=== PATIENT | female | born 1965 | race Caucasian/White ===

== ENCOUNTER 2020-07-29 16:00 | Inpatient (IN) | payer OTHER ==
[~2020-07-29] VITALS: Ht 160 cm; Wt 95.3 kg
[~2020-07-29 16:00] MED LIST: LYR50 PO; OMEP20EC9 PO; TIAZEDINE PO; [UNRECOGNIZED DRUG - CODE] PO
[2020-07-29 16:08] VITALS: BP 126/72
--- NOTE | 2020-07-29 16:21 | NUR ---
W/C ASSIST TO BED 11
[2020-07-29] MEDS ORDERED: NACL 0.9% 1,000 ML IV ONE (16:30)
--- NOTE | 2020-07-29 16:45 | NUR ---
55 Y/O FEMALE C/O DIZZINESS AND WEAKNESS X2 DAYS S/P INJECTING COCAINE. RESP EVEN AND UNLABORED. STEADY GAIT WITH CANE. NO NEURO DEFICITS NOTED. PATIENT STATES SHE FEELS "WEIRD". TREMORS NOTED AND JERKING MOVEMENTS IN UPPER EXTREMITIES. VSS. AAOX4.
--- NOTE | 2020-07-29 17:15 | NUR ---
PT TAKEN TO CT
[2020-07-29 17:16] LABS: APPEARANCE,URINE CLEAR (CLEAR); BILIRUBIN,URINE 1+ (NEGATIVE); BLOOD, URINE TRACE-I (NEGATIVE); COLOR,URINE YELLOW (YELLOW); LEUKOCYTE ESTERASE ,URINE NEGATIVE (NEGATIVE); NITRITE, URINE NEGATIVE (NEGATIVE); UGLUCOSE NEGATIVE (NEGATIVE)
[2020-07-29 17:18] LABS: BASOPHILS % (AUTO) 0.2 % (0.0-2.0); HEMATOCRIT 38.2 % (36-48); HEMOGLOBIN 12.2 g/dL (12.0-16.0); LYMPHOCYTES % (AUTO) 6.9 % (20.5-51.1); MEAN CORPUSCULAR HEMOGLOBIN 26 pg (27-31); MEAN CORPUSCULAR HGB CONC 32 g/dL (33-37); MEAN CORPUSCULAR VOLUME 81.5 fL (80-94); MONOCYTES # (AUTO) 0.9 K/uL (0.8-1.0); MONOCYTES % (AUTO) 6.2 % (1.7-9.3); NEUTROPHILS # (AUTO) 12.4 K/uL (1.8-7.7); NEUTROPHILS % (AUTO) 86.7 % (42.2-75.2); PLATELET COUNT (AUTO) 235 K/uL (140-450); RED BLOOD CELL COUNT(AUTO) 4.69 MIL/uL (4.20-5.40); RED CELL DISTRIBUTION WIDTH 15.2 % (11.6-13.7); WHITE BLOOD COUNT (AUTO) 14.2 K/uL (4.8-10.8)
[2020-07-29 17:29] LABS: ANION GAP 16.4 (8-16); CARBON DIOXIDE 24.4 mmol/L (21-32); CHLORIDE 94 mmol/L (98-107); GFR ARICAN-AMERICAN 15 mL/min (>90); GLUCOSE 116 mg/dL (74-106); POTASSIUM 3.8 mmol/L (3.5-5.1); SODIUM SERUM 131 mmol/L (136-145); UREA NITROGEN, BLOOD 38 mg/dL (7-18)
[2020-07-29 17:44] LABS: ALBUMIN 3.6 g/dL (3.4-5.0); ASPARTATE AMINOTRANSFERASE 50 U/L (15-37); TOTAL BILIRUBIN 0.6 mg/dL (0.0-1.0)
[2020-07-29 17:51] LABS: COARSE GRANULAR CASTS,URINE 0-10 /LPF (None Seen); RBC,URINE 0-5 /HPF (0-5); WBC,URINE 0-5 /HPF (0-5)
[2020-07-29 18:24] LABS: BARBITURATE, URINE NEGATIVE ng/ml (NEG <=200); BENZODIAZEPINE, URINE NEGATIVE ng/mL (NEG <=200); CANNABINOID, URINE NEGATIVE ng/mL (NEG <=50); COCAINE, URINE POSITIVE ng/mL (NEG <=300); OPIATE, URINE POSITIVE ng/mL (NEG <=2000); PHENCYCLIDINE SCREEN,URINE NEGATIVE ng/mL (NEG <=25)
--- NOTE | 2020-07-29 19:11 | NUR ---
RECEIVED REPORT FROM KENDALL BRONSON FOR CONTINUITY OF CARE.
--- NOTE | 2020-07-29 19:20 | NUR ---
PT RESTING IN BED, LOCKED AND IN LOWEST POSITION, HOB ELEVATED, SIDE RAIL X1 FOR PT SAFETY. RR EVEN AND UNLABORED, VSS.
--- NOTE | 2020-07-29 20:10 | NUR ---
Patient will be admitted to care of DR. TALLEY. Admited to TELEMETRY. Will go to room 121B. Belongings list completed. Report to KENDALL MARIN.
[2020-07-29 20:15] VITALS: BP 100/70
--- NOTE | 2020-07-29 20:15 | NUR ---
RECEIVED PT FROM ER VIA JAMES PT IS [id number] ON TELEMETRY SR DENIES ANY DIZZINESS AT THIS TIME PT AMBULATES TO THE RESTROOM VOIDING WELL YELLOW URINE, HL ON LEFT FA GAUGE # 20 PATENT, SKIN IS INTACT, MRSA NARES SWAB PROTOCOL AND SENT TO LAB . PT IS ORIENTED TO THE FLOOR CALL LIGHT WITHIN REACH
[2020-07-29] MEDS: NACL 0.9% 1,000 ML IV SCH (21:29)
[2020-07-29] MEDS ORDERED: ZOLPIDEM 5 MG TAB PO PRN (21:40)
[2020-07-29] MEDS ORDERED: MECLIZINE 25 MG TAB PO PRN (21:40)
[2020-07-29] MEDS ORDERED: LORazepam 2 MG/ML VIAL IM/IVP PRN (21:40)
[2020-07-29] MEDS ORDERED: MAG SULF 2000 MG/WATER PREMIX 50 ML IV PRN (21:40)
[2020-07-29] MEDS ORDERED: HYDROcodone/APAP 5/325 MG 1 TAB TAB PO PRN (21:40)
[2020-07-29] MEDS ORDERED: POTASSIUM CHLORIDE 10 MEQ TABER PO PRN (21:40)
[2020-07-29] MEDS ORDERED: ONDANSETRON 4 MG/2 ML VIAL IM/IVP PRN (21:40)
[2020-07-29] MEDS ORDERED: MORPHINE SULFATE 2 MG/ML SYR IVP PRN (21:40)
[2020-07-29] MEDS ORDERED: DOCUSATE SODIUM 100 MG GELCAP PO PRN (21:40)
[2020-07-29] MEDS ORDERED: ACETAMINOPHEN 325 MG TAB PO PRN (21:40)
--- NOTE | 2020-07-29 23:00 | NUR ---
PT AMBULATED TO THE RESTROOM NOT DISTRESS NOTED, VOIDING WELL ON TELEMETRY SR
[2020-07-29 23:01] LABS: CHOL/HDL RATIO 2.9 (1-4.5); MAGNESIUM 2.3 mg/dL (1.8-2.4); PROTHROMBIN TIME 10.6 secs (10.8-13.4); THYROID STIMULATING HORMONE 0.26 uIU/mL (0.34-3.74)
[2020-07-30] VITALS: BP 86/49
--- NOTE | 2020-07-30 01:57 | NUR ---
PT SLEEPING WELL ON TELMETRY SR NOT DISTRESS NOTESD
[2020-07-30 04:00] VITALS: BP 98/61
--- NOTE | 2020-07-30 04:00 | NUR ---
PT AMBULATES TO THE RESTROOM DENIES ANY DIZZINESS PN TELEMETRY SR , EMAIN STABLE
[2020-07-30 05:09] LABS: BASOPHILS % (AUTO) 0.2 % (0.0-2.0); EOSINOPHILS # (AUTO) 0.1 K/uL (0-0.4); EOSINOPHILS % (AUTO) 1.1 % (0.0-4.0); HEMATOCRIT 33.1 % (36-48); HEMOGLOBIN 10.6 g/dL (12.0-16.0); LYMPHOCYTES # (AUTO) 1.6 K/uL (2.5-16.5); MEAN CORPUSCULAR HEMOGLOBIN 26 pg (27-31); MEAN CORPUSCULAR HGB CONC 32 g/dL (33-37); MEAN CORPUSCULAR VOLUME 81.6 fL (80-94); MONOCYTES # (AUTO) 0.6 K/uL (0.8-1.0); MONOCYTES % (AUTO) 8.4 % (1.7-9.3); NEUTROPHILS # (AUTO) 5.1 K/uL (1.8-7.7); NEUTROPHILS % (AUTO) 69.3 % (42.2-75.2); PLATELET COUNT (AUTO) 168 K/uL (140-450); RED BLOOD CELL COUNT(AUTO) 4.06 MIL/uL (4.20-5.40); RED CELL DISTRIBUTION WIDTH 15.4 % (11.6-13.7); WHITE BLOOD COUNT (AUTO) 7.4 K/uL (4.8-10.8)
[2020-07-30 05:31] LABS: ANION GAP 8.7 (8-16); CARBON DIOXIDE 28.7 mmol/L (21-32); CREATININE 2.1 mg/dL (0.6-1.3); POTASSIUM 4.4 mmol/L (3.5-5.1)
[2020-07-30 05:32] LABS: MAGNESIUM 2.3 mg/dL (1.8-2.4); PHOSPHORUS 3.7 mg/dL (2.5-4.9)
--- NOTE | 2020-07-30 06:30 | NUR ---
MEDIC GIVENAS ORDER PT REMAIN STABLE DENIES ANY DIZZINESS PM TELE SR PT WILL BE ENDORSED TO [facility] NURSE FOR CONTINUE OF CARE
[2020-07-30] MEDS: PANTOPRAZOLE 40 MG TABEC PO SCH (06:49)
[2020-07-30] MEDS: NACL 0.9% 1,000 ML IV SCH ×3 (06:50→21:18)
--- NOTE | 2020-07-30 07:30 | NUR ---
RECEIVED PT AA0X4. NO SOB NOTED. NO C/O PAIN AT THIS TIME. IV TO LT FOREARM PATENT AND INTACT. CHEST CLEAR. ABDOMEN SOFT, BOWEL SOUNDS PRESENT. INSTRUCTED PT TO CALL FOR ASSISTANCE, CALL LIGHT WITHIN REACHED. PT VERBALIZED UNDERSTANDING.
[2020-07-30 08:00] VITALS: BP 100/60
[2020-07-30] MEDS ORDERED: OMEPRAZOLE PO SCH (09:00)
--- NOTE | 2020-07-30 09:39 | NUR ---
PATIENT HAS BEEN SCREENED AND CATEGORIZED MODERATE NUTRITION RISK. PATIENT WILL BE SEEN WITHIN 3-5 DAYS OF ADMISSION. 08/01/20 08/03/[address]
[2020-07-30] MEDS: PREGABALIN 50 MG CAP PO SCH ×2 (10:16→21:16)
[2020-07-30 12:00] VITALS: BP 99/65
--- NOTE | 2020-07-30 14:00 | NUR ---
URINE COLLECTED AND SENT TO LAB.
[2020-07-30] MEDS ORDERED: MORPHINE TAB ER 30 MG TABER PO SCH ×2 (14:39→21:00)
[2020-07-30] MEDS: tiZANidine 4 MG TAB PO SCH ×2 (14:51→17:48)
--- NOTE | 2020-07-30 16:10 | NUR ---
DC PLANNIN YRS OLD FEMALE PATIENT WAS ADMITTED FROM HOME WITH A DX OF OZ, DIZZINESS AND SLURRED SPEECH. PT HAS A HX OF HTN, MS CHAIRI I MALFORMATION AND FIBROMYALGIA. PT HAS COCAINE ABUSE. CXR SHOWED NO ACUTE CARDIOPULMONARY DISEASE. RENAL US, HEAD CT AND CAROTID US AR ALL NEGATIVE. URINE AND BLOOD CULTURE PENDING. STARTED IVF, PAIN MEDICATION AND CONTINUED ALL HOME MEDS. CONSULTED WITH DOT NET DEVELOPER FOR OZ. DC PLAN TO GO HOME WHEN STABLE. CM TO FOLLOW Addendum: 07/31/20 at 1210 by Seble Wynne CM DC PLANNING: SEEN BY NEPHRO DR PERALTA DC/ED IVF SCR WITH IN NORMAL LIMIT NO EVIDENCE OF ONGOING RHABDO, MILLER HELPER NORMAL ECHO. AWAITING FOR ATTENDING DC PLAN STABLE FOR DISCHARGE. CM TOF FOLLOW
--- NOTE | 2020-07-30 17:01 | NUR ---
PT RESTING. NO COMPLAINTS MADE. ENDORSED CARE TO AJAY FOR CONTINUITY OF CARE.
--- NOTE | 2020-07-30 17:09 | NUR ---
CARE ABSORBED FROM HEATHER, CHARGE NURSE. PATIENT RESTING.
[2020-07-30 17:30] VITALS: BP 116/68
[2020-07-30 19:00] LABS: CREATININE,URINE RANDOM 21 mg/dL (30-125); URINE SODIUM, RANDOM 7 mmol/l (40-220)
--- NOTE | 2020-07-30 19:10 | NUR ---
RECD. RESTING IN BED, AWAKE, A/OX4. RESPIRATION EVEN AND UNLABORED. IV OF NS AT 150 ML/HR INFUSING, LEFT FOREARM G20. ABLE TO AMBULATE INDEPENDENTLY. DENIES FEELING OF DIZZINESS. PLAN OF CARE FOR THE SHIFT DISCUSSED. VERBALIZED UNDERSTANDING. DENIES PAIN 0/10.
--- NOTE | 2020-07-30 19:11 | NUR ---
Patient's Plan of Care was discussed and reviewed with MERGERS AND ACQUISITIONS BANKER: FATMATA. CALL LIGHT WITHIN REACH.
[2020-07-30 20:00] VITALS: BP 105/64
[2020-07-30] MEDS: MORPHINE TAB ER 30 MG TABER PO SCH (21:16)
--- NOTE | 2020-07-30 21:16 | NUR ---
WATCHING TV. DUE PO MEDICATIONS GIVEN.
[2020-07-31] VITALS: BP 115/62
--- NOTE | 2020-07-31 | NUR ---
SLEEPING COMFORTABLY IN BED.
--- NOTE | 2020-07-31 02:00 | NUR ---
SLEEPING ON HER RIGHT SIDE, COMFORTABLE IN BED.
[2020-07-31 04:00] VITALS: BP 155/72
--- NOTE | 2020-07-31 04:00 | NUR ---
SR ON TELE MONITORING. NO ABNORMAL RHYTHM NOTED.
[2020-07-31] MEDS: NACL 0.9% 1,000 ML IV SCH (04:46)
[2020-07-31 05:58] LABS: BASOPHILS % (AUTO) 0.3 % (0.0-2.0); EOSINOPHILS # (AUTO) 0.1 K/uL (0-0.4); EOSINOPHILS % (AUTO) 2.6 % (0.0-4.0); HEMATOCRIT 32.8 % (36-48); HEMOGLOBIN 10.5 g/dL (12.0-16.0); LYMPHOCYTES # (AUTO) 1.2 K/uL (2.5-16.5); LYMPHOCYTES % (AUTO) 33.8 % (20.5-51.1); MEAN CORPUSCULAR HEMOGLOBIN 26 pg (27-31); MEAN CORPUSCULAR HGB CONC 32 g/dL (33-37); MEAN CORPUSCULAR VOLUME 82.6 fL (80-94); MONOCYTES # (AUTO) 0.3 K/uL (0.8-1.0); MONOCYTES % (AUTO) 8.7 % (1.7-9.3); NEUTROPHILS % (AUTO) 54.6 % (42.2-75.2); PLATELET COUNT (AUTO) 153 K/uL (140-450); RED BLOOD CELL COUNT(AUTO) 3.97 MIL/uL (4.20-5.40); RED CELL DISTRIBUTION WIDTH 15.5 % (11.6-13.7); WHITE BLOOD COUNT (AUTO) 3.7 K/uL (4.8-10.8)
--- NOTE | 2020-07-31 06:00 | NUR ---
ACCIDENTALLY WET THE BED, BEDDINGS CHANGED.
[2020-07-31] MEDS: PANTOPRAZOLE 40 MG TABEC PO SCH (06:30)
[2020-07-31] MEDS: MORPHINE TAB ER 30 MG TABER PO SCH ×2 (06:31→12:58)
[2020-07-31 07:05] LABS: ANION GAP 8.9 (8-16); CARBON DIOXIDE 27.2 mmol/L (21-32); POTASSIUM 4.1 mmol/L (3.5-5.1)
[2020-07-31 07:06] LABS: CREATININE 0.9 mg/dL (0.6-1.3)
[2020-07-31 07:11] LABS: MAGNESIUM 1.9 mg/dL (1.8-2.4); PHOSPHORUS 1.8 mg/dL (2.5-4.9)
--- NOTE | 2020-07-31 07:15 | NUR ---
CONDITION REMAIN STABLE. ENDORSED TO AM SHIFT NURSE FOR CONTINUITY OF CARE.
--- NOTE | 2020-07-31 07:17 | NUR ---
RECEIVED REPORT FROM NIGHT NURSE PT IS AAOX4 LYING IN BED, ON ROOM AIR, AMBULATORY, SKIN INTACT AND IV SITES IN PLACE, INTACT AND PATENT. ON RENAL DIET. SAFETY MEASURES IN PLACE AND CALL LIGHT WITHIN REACH. WILL CONTINUE TO MONITOR.
[2020-07-31 08:00] VITALS: BP 150/80
--- NOTE | 2020-07-31 08:54 | NUR ---
PHYSICAL THERAPY EVALUATION DONE AT THIS TIME. PATIENT ABLE TO WALK AND TOLERATED WELL.
[2020-07-31] MEDS: tiZANidine 4 MG TAB PO SCH ×2 (08:57→12:58)
[2020-07-31] MEDS: PREGABALIN 50 MG CAP PO SCH (08:57)
--- NOTE | 2020-07-31 09:06 | NUR ---
MEDICATIONS DUE GIVEN AT THIS TIME, VITAL SIGNS CHECKED BP 150/80 MI 70. NO DISTRESS NOTED AND PT DENIES PAIN, ABLE TO SLEEP WELL. SAFETY MEASURES IN PLACE AND CALL LIGHT WITHIN REACH.WILL CONTINUE TO MONITOR.
[2020-07-31 09:07] LABS: T4 (THYROXINE) 9.2 ug/dL (4.5-12.0)
--- NOTE | 2020-07-31 09:37 | NUR ---
IV FLUID SODIUM CHLORIDE 0.9% AT 150 MLS/HR DISCONTINUED AT THIS TIME.
[2020-07-31 12:00] VITALS: BP 122/75
--- NOTE | 2020-07-31 12:16 | NUR ---
CLINICAL TRAINER NOTE: Patient's Orientation Person Situation Place Time Information Provided By PATIENT Comments SW CONTACTED PATIENT'S ROOM PHONE TO COMPLETE ASSESSMENT TELEPHONICALLY. Coding File Clerk, Realtionship and Phone Number LIANA PENA [phone] [facility] Power of Shirring Machine Operator Automatic No Does Patient Have a POLST No Identifying Problems No Social Work Triggers Is A Social Work Consult Needed No Mandate Report Filed No Explanation Of Identifying Problems PATIENT IS A 55-YEAR-OLD FEMALE ADMITTED FOR OZ, DIZZINESS, AND SLURRED SPEECH. PATIENT HAS PMHX OF MS, HYPERTENSION, AND FIBROMYAGIA. PATIENT DENIED SUBSTANCE ABUSE OR MENTAL HEALTH HISTORY DURING ASSESSMENT. Admitted From Home Pre-Admission Level Of Functioning Status Assist With ADL Level Of Functioning Comment PER PATIENT, SHE RECEIVES ASSISTANCE WITH COOKING, CLEANING, DRESSING, BATHING, MEDICATION, AND TRANSPORTATION TO PHYSICIAN APPOINTMENTS AND GROCERY SHOPPING. Prior Resources/Services Used In Last 12 Months [facility] Prior Resources/Service Comments PATIENT STATED SHE RECEIVES 98 HOURS MONTHLY. Prior DME Cane Walker Wheelchair Living Situation Apartment Lives Alone Patient Had Caregiver Yes Name and Contact Number Of Designated Caregiver PITA ANDREWS JR. Home Support No Caregiver Issues Financial Issues No Known Financial Issue Referral To The Financial Counselor Needed No Factors/Needs No D/C Needs Identified Pt/Rep Participated In Discharge Plan Yes Patient/Family Agress With Discharge Plan Yes Discharge Plan Comments TENTATIVE DISCHARGE PLAN IS FOR PATIENT TO RETURN HOME. DC Plan Status Initiated
--- NOTE | 2020-07-31 13:11 | NUR ---
MADE ROUND AT THIS TIME AND MEDICATIONS DUE GIVEN. CHECK VITAL SIGNS BP 122/75 PA 60. PT IS STABLE AND NO DISTRESS NOTED, DENIES PAIN. SAFETY MEASURES IN PLACE AND CALL LIGHT WITHIN REACH. WILL CONTINUE TO MONITOR.
[2020-07-31] MEDS ORDERED: ACET-1182 PO (13:37)
[2020-07-31] MEDS ORDERED: TIZA4TAB4 PO (13:37)
[2020-07-31] MEDS ORDERED: PANT40EC28 PO (13:37)
[2020-07-31] MEDS ORDERED: POTA10TE30 PO (13:37)
[2020-07-31] MEDS ORDERED: MSCON30 PO (13:37)
[2020-07-31] MEDS ORDERED: DOCU-299 PO (13:37)
--- NOTE | 2020-07-31 15:00 | NUR ---
DISCHARGED INSTRUCTION GIVEN TO PATIENT AT BEDSIDE, MEDICATION REGIMENS AND SIDE EFFECTS, ENCOURAGED PATIENT TO SEEK MEDICAL HELP INCASE OF MEDICAL EMERGENCIES, IV SITES INTACT AND NO BLEEDING, REMOVED ALL ID BAND, IV, AND RETURNED TELE MONITOR TO SCIENTIFIC HELPER, PT CHANGED TO OWN CLOTHES, RETURNED ALL PATIENTS BELONGINGS, ESCORTED PATIENT TO LOBBY AND PT DISCHARGED TO HOME, PT IS STABLE.
== END 2020-07-31 15:00 | disposition home or self-care (01) | DRG 917 ==
LOC: MED 16:00 → MTU 18:58
PROVIDERS: ADMIT Hospitalist; ATTEND Hospitalist
DX: T40.5X1A Poisoning by cocaine, accidental (unintentional), initial encounter (principal); N17.0 Acute kidney failure with tubular necrosis; G92 Toxic encephalopathy; G93.5 Compression of brain; E87.1 Hypo-osmolality and hyponatremia; E86.0 Dehydration; F17.210 Nicotine dependence, cigarettes, uncomplicated; I12.9 Hypertensive chronic kidney disease with stage 1 through stage 4 chronic kidney disease, or unspecified chronic kidney disease; N18.9 Chronic kidney disease, unspecified; D72.829 Elevated white blood cell count, unspecified; G35 Multiple sclerosis; M79.7 Fibromyalgia; E86.9 Volume depletion, unspecified; D64.9 Anemia, unspecified; F14.10 Cocaine abuse, uncomplicated; Z79.899 Other long term (current) drug therapy; Z98.51 Tubal ligation status; Z71.6 Tobacco abuse counseling; Y92.89 Other specified places as the place of occurrence of the external cause
CPT/HCPCS: 36415; 70450; 71045; 76770; 80048; 80053; 80305; 81001; 82140; 82150; 82553; 82570; 83036; 83605; 83690; 83735; 83880; 84100; 84134; 84300; 84436; 84443; 84484; 85025; 85610; 85730; 87040; 87081; 87086; 93005; 93880; 96360; 97110; 97116; 97161-GP; 97530; 99285; G0482; J1644; J7030; Q0092

== ENCOUNTER 2022-07-28 21:10 | Inpatient (IN) | payer OTHER ==
[~2022-07-28] VITALS: Ht 167.6 cm; Wt 65.3 kg
[~2022-07-28 21:10] MED LIST changes: +ACET-1182 PO; +DOCU-299 PO; +MSCON30 PO; +PANT40EC56 PO; +POTA10TA70 PO; -TIAZEDINE PO; +TIZA-313 PO
[2022-07-28 21:21] VITALS: BP 166/119
[2022-07-28 22:21] LABS: BASOPHILS % (AUTO) 0.2 % (0.0-2.0); HEMATOCRIT 41.8 % (36-48); HEMOGLOBIN 13.6 g/dL (12.0-16.0); LYMPHOCYTES # (AUTO) 0.9 K/uL (2.5-16.5); LYMPHOCYTES % (AUTO) 5.9 % (20.5-51.1); MEAN CORPUSCULAR HEMOGLOBIN 26 pg (27-31); MEAN CORPUSCULAR HGB CONC 33 g/dL (33-37); MEAN CORPUSCULAR VOLUME 81.1 fL (80-94); MONOCYTES % (AUTO) 6.1 % (1.7-9.3); NEUTROPHILS # (AUTO) 13.8 K/uL (1.8-7.7); NEUTROPHILS % (AUTO) 87.8 % (42.2-75.2); PLATELET COUNT (AUTO) 286 K/uL (140-450); RED BLOOD CELL COUNT(AUTO) 5.16 MIL/uL (4.20-5.40); RED CELL DISTRIBUTION WIDTH 16.3 % (11.6-13.7); WHITE BLOOD COUNT (AUTO) 15.8 K/uL (4.8-10.8)
[2022-07-28 22:44] LABS: ALBUMIN 3.6 g/dL (3.4-5.0); ANION GAP 18.7 (8-16); ASPARTATE AMINOTRANSFERASE 30 U/L (15-37); CARBON DIOXIDE 24.3 mmol/L (21-32); CHLORIDE 98 mmol/L (98-107); GFR ARICAN-AMERICAN 11 mL/min (>90); GLUCOSE 131 mg/dL (74-106); SALICYLATE 4.6 mg/dL (2.8-20.0); SODIUM SERUM 137 mmol/L (136-145); TOTAL BILIRUBIN 0.6 mg/dL (0.0-1.0); UREA NITROGEN, BLOOD 52 mg/dL (7-18)
[2022-07-28 22:52] LABS: ACETAMINOPHEN < 0.5 ug/ml (10-30)
[2022-07-28] MEDS ORDERED: NACL 0.9% 1,000 ML IV ONE (22:55)
--- NOTE | 2022-07-29 01:27 | NUR ---
PT TO BED 1 AT THIS TIME WITH RN
--- NOTE | 2022-07-29 02:50 | NUR ---
PT CURRENTLY IN BED 3. AWAITING A BED FOR ADMISSION.
[2022-07-29] MEDS ORDERED: hydrALAZINE 25 MG TAB PO PRN ×2 (05:20→15:18)
[2022-07-29] MEDS ORDERED: ACETAMINOPHEN 325 MG TAB PO PRN (05:20)
[2022-07-29] MEDS ORDERED: ZOLPIDEM 5 MG TAB PO PRN (05:20)
[2022-07-29] MEDS ORDERED: ONDANSETRON 4 MG/2 ML VIAL IVP PRN (05:20)
[2022-07-29] MEDS: LACTATED RINGERS 1,000 ML IV SCH ×2 (05:20→10:10)
[2022-07-29] MEDS ORDERED: LORazepam 1 MG TAB PO PRN (05:20)
[2022-07-29] MEDS ORDERED: HYDROcodone/APAP 5/325 MG 1 TAB TAB PO PRN (05:20)
--- NOTE | 2022-07-29 05:21 | NUR ---
PT SLEEPING WITHOUT DISTRESS. PT AWAITING FOR ROOM ASSIGNMENT. CONTINUED MONITORING OF STATUS.
--- NOTE | 2022-07-29 07:13 | NUR ---
UNABLE TO OBTAIN LR ORDERED. ER MD ATTEMPTED TO OBTAIN LR FOR PT, BUT WAS UNSUCCESSFUL. CALL PLACED OUT TO ADMITTING MD. AWAITING CALL BACK.
--- NOTE | 2022-07-29 07:30 | NUR ---
PT EDORSED TO KENDALL MORRIS IN STABLE CONDITION. AWAITING ROOM ASSIGNMENT. NO DISTRESS NOTED.
--- NOTE | 2022-07-29 07:37 | NUR ---
REPORT RECEIVED FROM VIOLA ARGUETA. ASSUMED CARE AT THIS TIME
--- NOTE | 2022-07-29 07:40 | NUR ---
pt awake and resting w/ hob raised. on 2L via nc . no visible distress. respirations even and unlabored
--- NOTE | 2022-07-29 08:08 | NUR ---
pt provided w/ breakfast. pt awake and eating in bed
[2022-07-29 09:00] LABS: OPIATE, URINE POSITIVE ng/mL (NEG <=2000)
[2022-07-29 09:01] LABS: BARBITURATE, URINE NEGATIVE ng/ml (NEG <=200); BENZODIAZEPINE, URINE NEGATIVE ng/mL (NEG <=200); CANNABINOID, URINE NEGATIVE ng/mL (NEG <=50); COCAINE, URINE POSITIVE ng/mL (NEG <=300); PHENCYCLIDINE SCREEN,URINE NEGATIVE ng/mL (NEG <=25)
[2022-07-29] MEDS: DOCUSATE SODIUM 100 MG GELCAP PO SCH (09:37)
[2022-07-29] MEDS ORDERED: [UNRECOGNIZED DRUG - CODE] PO (09:45)
[2022-07-29] MEDS ORDERED: LISI-487 PO (09:45)
--- NOTE | 2022-07-29 09:48 | NUR ---
Patient will be admitted to care of MD CARDENAS. Admited to TELE. Will go to room 112B. Belongings list completed. Report to AIYANA ARGUETA .
[2022-07-29 10:15] VITALS: BP 98/59
--- NOTE | 2022-07-29 10:30 | NUR ---
RECEIVED PT FROM ER, AMBULATED WITH STEADY GAIT TO BATHROOM AND BED, AOX4, VSS, NO ACUTE DISTRESS, IV FLUIDS STARTED, ADMISSION CHARTING COMPLETE, SAFETY MEASURES MAINTAINED, CALL LIGHT WITHIN RANGE, PT ON RA >92%, BED LOCKED, IN LOWEST POSITION, AND ALARM ON, WILL CONTINUE TO MONITOR.
--- NOTE | 2022-07-29 13:37 | NUR ---
PATIENT HAS BEEN SCREENED AND CATEGORIZED MODERATE NUTRITION RISK. PATIENT WILL BE SEEN WITHIN 3-5 [address] OF [address]ION. [address]
[2022-07-29 14:23] LABS: ANION GAP 13.5 (8-16); CARBON DIOXIDE 23.8 mmol/L (21-32); CREATININE 2.4 mg/dL (0.6-1.3); POTASSIUM 3.3 mmol/L (3.5-5.1)
--- NOTE | 2022-07-29 15:43 | NUR ---
DC PLANNING SW MET W/PT AT BEDSIDE TO COMPLETE ASSESSMENT. HERMINIA REPORTS RESIDING ALONE AT THE ADDRESS ON FILE. PATIENT REPORTS LIVING AT THE ADDRESS ON FILE FOR 17 YRS. PATIENT DECLINED TO PROVIDE EMERGENCY CONTACT AND ONLY REPORTED THAT SHE HAS AN [facility] CARE[facility], DAYAMI LECHUGA WHO PROVIDES CARE FOR HER "EVERYDAY. PATIENT STRUGGLED TO RECALL HER PHONE NUMBER AND REPORTED THAT SHE WOULD BE IN CONTACT WITH HER IF SHE NEEDED. PT REPORTS 4 CHILDREN ALL OF WHICH SHE DECLINED TO ADD EMERGENCY CONTACT. PATIENT IS ALLOTTED 125HRS/MONTH. PATIENT REPORTS MEETING WITH HER PCP REGULARLY, ABOUT ONCE EVERY THREE MONTHS; LAST VISIT 1 MONTH AGO. PATIENT REPORTS RX COMPLIANCE AND DENIES BARRIERS IN ACCESSING NEEDED MEDICATIONS. PATIENT REPORTS PICKING UP MEDICATIONS FROM [facility] IN [place], WHEN NEEDED. PATIENT REPORTS BEING AMBULATORY WITH DME ASSISTANCE; FWW, CANE, CRUTCHES & BATH CHAIR. PATIENT REQUIRES ASSISTANCE WITH ADL'S WHICH [facility] WORK[facility] AIDS WITH. PATIENT REPORTS ADEQUATE FOOD SOURCES, HOWEVER, REQUESTED RESOURCES FOR FOOD RESOURCES. PATIENT ACCEPTED EMERGENCY ASSISTANCE RESOURCES PROVIDED BY SW. PATIENT DENIES MENTAL HEALTH HX. PATIENT REPORTS HX OF SUBSTANCE USE, PRIMARY SUBSTANCE OF CHOICE; HEROINE. PATIENT REPORTS BEING SOBER FOR 20 YRS DESPITE TESTING POSITIVE FOR OPIATES AND COCAINE AT ADMISSION. PATIENT DECLINED SUBSTANCE USE RESOURCES OFFERED BY SW. SW ATTEMPTED TO PROVIDE PATIENT WITH PSYCHOEDUCATION ON SUBSTANCE USE HOWEVER, PATIENT ADAMANTLY DENIED CURRENT SUBSTANCE USE. PT REPORTS DC PLAN IS TO RETURN HOME WHEN CLINICALLY STABLE.
[2022-07-29 16:00] VITALS: BP 128/76
--- NOTE | 2022-07-29 17:35 | NUR ---
IV REMOVED BY PT, I ATTEMPTED X2, ASSEMBLY MECHANIC ATTEMPTED X2 - UNSUCCESSFUL.
--- NOTE | 2022-07-29 18:41 | NUR ---
INFORMED DR HARVEY OF IV AND POTASSIUM OF 3.3 - PENDING CALL BACK. PT AOX4, VSS, NO ACUTE DISTRESS, AMBULATES WITH STEADY GATE, SR ON TELE, RA >92%, TOLERATING MEALS / FLUIDS, DENIES PAIN OR SOB, SKIN INTACT, BED LOCKED AND IN LOWEST POSITION, CALL LIGHT WITHIN RANGE, PENDING URINE RESULTS, FAMILY AT BEDSIDE, PT FREE FROM INJURY AND STABLE FOR ENDORSEMENT TO PM SHIFT RN PAIGE JACKSON.
[2022-07-29 20:00] VITALS: BP 121/64
--- NOTE | 2022-07-29 20:00 | NUR ---
RECEIVED BEDSIDE REPORT FROM DAY NURSE FOR CONTINUITY OF CARE. PATIENT A/A/OX4, SITTING UP ON THE CHAIR AND WATCHING TV. PATIENT DENIES ANY CHEST PAIN, PALPITATIONS AND SOB. PATIENT SPEECH IS CLEAR. NO IV ACCESS AT THIS TIME. PER DAY RN PATIENT PULLED OUT THE IV ACCIDENTALLY AND TRIED TO PLACE A NEW IV BUT PATIENT IS HARD STICK.WILL TRY TO PLACE A NEW IV LATER. DISCUSSED PLAN OF CARE WITH THE PATIENT AND VERBALIZE UNDERSTANDING. CALL LIGHT WITHIN REACH.WILL CONTINUE POC.
[2022-07-29 21:41] LABS: CREATININE,URINE RANDOM 113 mg/dL (30-125); URINE SODIUM, RANDOM 24 mmol/l (40-220)
[2022-07-29 21:42] LABS: CHLORIDE,URINE RANDOM 29 mmol/L (110-250)
--- NOTE | 2022-07-29 22:00 | NUR ---
PLACED A NEW IV ON THE RIGHT FOREARM GAUGE 22. ADMINISTERED SCHEDULED MEDICATION EARLIER. NO ADVERSE DRUG REACTION NOTED AND NO COMPLAIN FROM THE PATIENT. CALL LIGHT WITHIN REACH. WILL CONTINUE POC.
[2022-07-30] VITALS: BP 113/71
--- NOTE | 2022-07-30 | NUR ---
PATIENT VITALS SIGNS STABLE, AFEBRILE, SATING 98% ON RA. SR ON TELE MONITOR, HR-71. PT NOT ON ANY DISTRESS AND NO COMPLAIN AT THIS TIME. CALL LIGHT WITHIN REACH. WILL CONTINUE POC.
--- NOTE | 2022-07-30 02:00 | NUR ---
PATIENT ASLEEP AT THIS TIME. VISIBLE CHEST RISE AND FALL NOTED. WILL CONTINUE OBSERVATION.
[2022-07-30] MEDS: LACTATED RINGERS 1,000 ML IV SCH (03:23)
[2022-07-30 04:00] VITALS: BP 139/83
--- NOTE | 2022-07-30 04:00 | NUR ---
PATIENT VITALS SIGNS STABLE, AFEBRILE, SATING 99% ON RA. SR ON TELE MONITOR, HR-64. PT NOT ON ANY DISTRESS AND NO COMPLAIN AT THIS TIME. CALL LIGHT WITHIN REACH. WILL CONTINUE POC.
--- NOTE | 2022-07-30 06:30 | NUR ---
PATIENT IV ON THE RT FOREARM GOT INFILTRATED. DC/D IV AND PT REFUSED TO PLACE A NEW IV AT THIS TIME. WILL ENDORSE TO DAY RN.
--- NOTE | 2022-07-30 06:56 | NUR ---
NO ACUTE EVENT THROUGHOUT THE NIGHT. PATIENT STABLE AND NOT ON ANY DISTRESS. NO COMPLAIN AT THIS TIME. ALL NEEDS ATTENDED. CALL LIGHT WITHIN REACH. WILL ENDORSE THE PATIENT TO THE ONCOMING RN FOR CONTINUITY OF CARE.
--- NOTE | 2022-07-30 07:19 | NUR ---
ENDORSED PATIENT TO THE ONCOMING RN FOR CONTINUITY OF CARE. PATIENT STABLE. SIGNING OFF.
[2022-07-30 07:22] LABS: BASOPHILS % (AUTO) 0.3 % (0.0-2.0); EOSINOPHILS # (AUTO) 0.1 K/uL (0-0.4); EOSINOPHILS % (AUTO) 1.4 % (0.0-4.0); HEMATOCRIT 35.1 % (36-48); HEMOGLOBIN 11.5 g/dL (12.0-16.0); LYMPHOCYTES # (AUTO) 1.5 K/uL (2.5-16.5); LYMPHOCYTES % (AUTO) 23.6 % (20.5-51.1); MEAN CORPUSCULAR HEMOGLOBIN 27 pg (27-31); MEAN CORPUSCULAR HGB CONC 33 g/dL (33-37); MEAN CORPUSCULAR VOLUME 81.6 fL (80-94); MONOCYTES # (AUTO) 0.5 K/uL (0.8-1.0); NEUTROPHILS # (AUTO) 4.1 K/uL (1.8-7.7); NEUTROPHILS % (AUTO) 66.7 % (42.2-75.2); PLATELET COUNT (AUTO) 168 K/uL (140-450); RED CELL DISTRIBUTION WIDTH 15.5 % (11.6-13.7); WHITE BLOOD COUNT (AUTO) 6.2 K/uL (4.8-10.8)
[2022-07-30 07:50] LABS: ALBUMIN 2.5 g/dL (3.4-5.0); ANION GAP 11.3 (8-16); CARBON DIOXIDE 26.3 mmol/L (21-32); CREATININE 1.1 mg/dL (0.6-1.3); MAGNESIUM 1.7 mg/dL (1.8-2.4); POTASSIUM 3.6 mmol/L (3.5-5.1); TOTAL BILIRUBIN 0.3 mg/dL (0.0-1.0)
[2022-07-30 08:00] VITALS: BP 160/95
[2022-07-30] MEDS: DOCUSATE SODIUM 100 MG GELCAP PO SCH (09:00)
== END 2022-07-30 11:25 | disposition home or self-care (01) | DRG 682 ==
LOC: MED 21:10 → MTU 07-29 05:23
PROVIDERS: ADMIT Internal Medicine; ATTEND Internal Medicine
DX: N17.9 Acute kidney failure, unspecified (principal); J18.9 Pneumonia, unspecified organism; M79.7 Fibromyalgia; G89.29 Other chronic pain; G35 Multiple sclerosis; E86.0 Dehydration; F19.90 Other psychoactive substance use, unspecified, uncomplicated; Z20.822 Contact with and (suspected) exposure to COVID-19
CPT/HCPCS: 36415; 71045; 76770; 80048; 80053; 80305; 82436; 82570; 83735; 84100; 84300; 85025; 87081; 93005; 96360; 99285; G0480; G0482; J1644; Q0092